=== PATIENT | male | born 1980 ===

== ENCOUNTER 2017-02-13 13:41 | Emergency (ER) | payer MEDICAID, OTHER ==
[2017-02-13] MEDS ORDERED: Naproxen 550 mg Tab PO STA (14:51)
[2017-02-13] MEDS ORDERED: Naproxen 550 mg Tab PO ONE (14:59)
--- NOTE | 2017-02-13 16:04 | RAD ---
PROCEDURE: Radiographs of the Lumbar Spine. HISTORY: low back pain COMPARISON: No prior. FINDINGS: BONES: Normal alignment. No listhesis. No fracture. DISC SPACES: Minimal disc height loss L4-5 and likely L5-S1 with remaining intervertebral discs and vertebral bodies normal in height. No destructive bony changes appreciated throughout. OTHER FINDINGS: None. 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 No fracture or spondylolisthesis identified.
--- NOTE | 2017-02-13 16:11 | C.PDOC ---
History Of Present Illness 36 yr old male presents to the ER with complaints of back pain on and off for the past 2 months. However, patient states he went back to the gym and did heavy lifting and felt a pull in the right lower back and now has pain that goes down to the left leg 3 days ago. Patient denies chest pain, abdominal pain , dysuria, incontinence, weakness or numbness. Time Seen by Provider: 02/13/17 13:58 Chief Complaint (Nursing): Back Pain History Per: Patient History/Exam Limitations: no limitations Onset/Duration Of Symptoms: Days (On and off for 2 months) Current Symptoms Are (Timing): Still Present Severity: Mild Associated Symptoms: denies: Incontinence, New Weakness, New Numbness Exacerbating Factor(s): Turning, Movement Recent travel outside of the [place]: No Past Medical History Reviewed: Historical Data, Nursing Documentation, Vital Signs Vital Signs: Last Vital Signs Temp 98.1 F 02/13/17 16:15 Pulse 68 02/13/17 16:15 Resp 18 02/13/17 16:15 BP 116/65 02/13/17 16:15 Pulse Ox 97 02/13/17 21:31 - Medical History PMH: Kidney Stones Family History: States: No Known Family Hx - Social History Hx Tobacco Use: Yes Hx Alcohol Use: No Hx Substance Use: No - Immunization History Hx Tetanus Toxoid Vaccination: No Hx Influenza Vaccination: No Hx Pneumococcal Vaccination: Yes Review Of Systems Except As Marked, All Systems Reviewed And Found Negative. Cardiovascular: Negative for: Chest Pain Gastrointestinal: Negative for: Abdominal Pain Genitourinary: Negative for: Dysuria, Incontinence Musculoskeletal: Positive for: Back Pain, Leg Pain (Radiating pain down the left leg) Neurological: Negative for: Weakness, Numbness Physical Exam - Physical Exam Appears: Non-toxic, No Acute Distress Skin: Warm, Dry, No Rash Head: Atraumatic, Normacephalic Eye(s): bilateral: Normal Inspection, PERRL Oral Mucosa: Moist Neck: Normal ROM Chest: Symmetrical, No Tenderness Cardiovascular: Rhythm Regular, No Friction Rub, No Murmur Respiratory: Normal Breath Sounds, No Rales, No Rhonchi, No Stridor, No Wheezing Gastrointestinal/Abdominal: Normal Exam, Soft, No Tenderness, No Guarding, No Rebound Back: Normal Inspection, No CVA Tenderness Extremity: Normal ROM, No Swelling Neurological/Psych: Oriented x3, Normal Speech, Normal Motor Gait: Steady ED Course And Treatment O2 Sat by Pulse Oximetry: 97 (RA) Pulse Ox Interpretation: Normal - Other Rad X-Ray - LS Spine X-Ray: Viewed By Me, Read By Radiologist Interpretation: PROCEDURE: Radiographs of the Lumbar Spine. HISTORY: low back pain. COMPARISON: No prior. FINDINGS: BONES: Normal alignment. No listhesis. No fracture. DISC SPACES: Minimal disc height loss L4-5 and likely L5-S1 with remaining intervertebral discs and vertebral bodies normal in height. No destructive bony changes appreciated throughout. OTHER FINDINGS: None. 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 No fracture or spondylolisthesis identified. Medical Decision Making Medical Decision Making: PLAN: * X-Ray - LS Spine * Naproxen PO * Flexeril PO On re-exam, the patient reports improvement of symptoms. Ambulatory in the ED with steady gait. Abdomen is soft, non-tender and patient is tolerating PO well. Lungs are CTA, heart is RRR. Disposition - Disposition Referrals: Ajit Dobbins MD [Non-Staff] - Disposition: HOME/ ROUTINE Disposition Time: 16:11 Condition: GOOD Additional Instructions: Follow up with the medical doctor within 1-2 days. Return if worsened. 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 - Scribe Statement The provider has reviewed the documentation as recorded by the Scribe Lubna Quevedo All medical record entries made by the Scribe were at my direction and personally dictated by me. I have reviewed the chart and agree that the record accurately reflects my personal performance of the history, physical exam, medical decision making, and the department course for this patient. I have also personally directed, reviewed, and agree with the discharge instructions and disposition.
[2017-02-13 16:16] VITALS: BP 116/65; PULSE 68; RESP 18; TEMP 98.1
[2017-02-13 21:29] VITALS: O2SAT 97
== END 2017-02-13 16:16 | disposition home or self-care (01) ==
LOC: C.ER 13:41
DX: M54.32 Sciatica, left side (principal)